=== PATIENT | male | born 1990 ===

== ENCOUNTER → 2024-08-07 | Outpatient (CLI) | payer BC ==
[2024-08-09 20:16] LABS: APTIMA MEDIA TYPE Urine; C. TRACHOMATIS BY TMA Negative (Negative); N. GONORRHOEAE BY TMA Negative (Negative); SPECIMEN SOURCE Urine
== END ==
LOC: LAB 13:33 → LAB SHORT 13:33
PROVIDERS: Physician Assistant
DX: N34.1 Nonspecific urethritis (principal); R10.9 Unspecified abdominal pain
CPT/HCPCS: 87086; 87491; 87591